=== PATIENT | male | born 1980 | race Caucasian/White ===

== ENCOUNTER 2019-08-07 06:20 | Emergency (ER) | payer OTHER ==
[~2019-08-07] VITALS: Ht 175.3 cm; Wt 102.1 kg
[~2019-08-07 06:20] MED LIST: KETO10TA2 PO; ORPH100T PO
== END 2019-08-07 11:33 | disposition home or self-care (01) ==
LOC: ER 06:20
DX: S90.32XA Contusion of left foot, initial encounter (principal); S90.31XA Contusion of right foot, initial encounter; S80.02XA Contusion of left knee, initial encounter; S80.01XA Contusion of right knee, initial encounter; V49.9XXA Car occupant (driver) (passenger) injured in unspecified traffic accident, initial encounter; Y93.89 Activity, other specified; Y92.488 Other paved roadways as the place of occurrence of the external cause; Y99.8 Other external cause status

== ENCOUNTER 2019-08-08 11:05 | Outpatient (CLI) | payer OTHER | END 2019-08-08 17:00 | disposition home or self-care (01) | LOC: MRI 11:05 | DX: S90.31XA Contusion of right foot, initial encounter (principal); S90.32XA Contusion of left foot, initial encounter | CPT/HCPCS: 73718 ==

== ENCOUNTER 2023-01-05 10:18 | Emergency (ER) | payer OTHER ==
[~2023-01-05] VITALS: Ht 172.7 cm; Wt 88.5 kg
== END 2023-01-05 13:39 | disposition home or self-care (01) ==
LOC: ER 10:18
DX: S81.012A Laceration without foreign body, left knee, initial encounter (principal); W45.8XXA Other foreign body or object entering through skin, initial encounter; Y93.18 Activity, surfing, windsurfing and boogie boarding; Y92.832 Beach as the place of occurrence of the external cause; Y99.9 Unspecified external cause status

== ENCOUNTER 2024-07-12 07:44 | Outpatient (CLI) | payer OTHER | END 2024-07-12 07:59 | disposition home or self-care (01) | LOC: TOM 07:44 | PROVIDERS: ATTEND Legal Medicine | DX: J20.9 Acute bronchitis, unspecified (principal) ==